=== PATIENT | female | born 1980 | race Caucasian/White ===

== ENCOUNTER 2017-06-03 03:55 | Emergency (ER) | payer OTHER ==
[~2017-06-03] VITALS: Ht 170.2 cm; Wt 63.1 kg
[~2017-06-03 03:55] MED LIST: MONTELUKAST SOD10 MG PO; NAPROSYN500 MG PO; VENTOLIN HFA18 GM IH
[2017-06-03] MEDS ORDERED: NORCO 5/3251 TABLET PO (05:14)
[2017-06-03 05:21] VITALS: BP 136/82
== END 2017-06-03 05:49 | disposition home or self-care (01) ==
LOC: EME 03:55
DX: S92.351G Displaced fracture of fifth metatarsal bone, right foot, subsequent encounter for fracture with delayed healing (principal); X50.9XXA Other and unspecified overexertion or strenuous movements or postures, initial encounter; Y92.39 Other specified sports and athletic area as the place of occurrence of the external cause; F17.200 Nicotine dependence, unspecified, uncomplicated
CPT/HCPCS: 73630; 99281; 99283